=== PATIENT | male | born 1985 | race Caucasian/White ===

== ENCOUNTER 2016-12-16 10:20 | Emergency (ER) | payer OTHER ==
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
--- NOTE | 2016-12-16 11:14 | ED MED RECONCILIATION SUMMARY ---
Patient: TRIPP CHAU Medication Reconciliation Report [facility] VisitID: [id number] [address] [place] [address] 31y, M Registration Date/Time: 12/16/2016 Weight: 77.1 kg Height/Length: 69 in. BMI: 25.1 ALLERGIES: PCN, Sulfa Antibiotics The patient's Home Medications are listed below: NONE. The source(s) of the original Home Medication information: patient The following Medications were given to the patient in the Emergency Department: None. The following Medications were prescribed to the patient: None.
--- NOTE | 2016-12-16 11:14 | ED MAR SUMMARY ---
..... Medication Administration Record [facility] [address] [place], [place] [id number] Patient: TRIPP CHAU Visit ID: [id number] 31y, M Weight: 77.1 kg Height/Length: 69 in BMI: 25.1 ALLERGIES: Sulfa Antibiotics, PCN
--- NOTE | 2016-12-16 11:14 | ED MAR SUMMARY ---
..... Medication Administration Record [address] [place], [place] [id number] Patient: TRIPP CHAU Visit ID: [id number] 31y, M Weight: 77.1 kg Height/Length: 69 in BMI: 25.1 ALLERGIES: Sulfa Antibiotics, PCN
--- NOTE | 2016-12-16 11:14 | ED MED RECONCILIATION SUMMARY ---
Patient: TRIPP CHAU Medication Reconciliation Report [facility] VisitID: [id number] [address] [place] [address] 31y, M Registration Date/Time: 12/16/2016 Weight: 77.1 kg Height/Length: 69 in. BMI: 25.1 ALLERGIES: PCN, Sulfa Antibiotics The patient's Home Medications are listed below: NONE. The source(s) of the original Home Medication information: patient The following Medications were given to the patient in the Emergency Department: None. The following Medications were prescribed to the patient: None.
== END 2016-12-16 11:02 | disposition home or self-care (01) ==
LOC: ED SRH 10:20
DX: Z53.21 Procedure and treatment not carried out due to patient leaving prior to being seen by health care provider (principal)